=== PATIENT | male | born 1985 | race Caucasian/White ===

== ENCOUNTER → 2019-10-01 | Outpatient (CLI) | payer OTHER | LOC: COL.RAD 13:30 | DX: M79.18 Myalgia, other site (principal) | CPT/HCPCS: J3301 ==

== ENCOUNTER → 2020-02-01 | Outpatient (CLI) | payer OTHER | LOC: COL.RAD 08:00 | DX: K21.9 Gastro-esophageal reflux disease without esophagitis (principal) | CPT/HCPCS: A9541 ==